=== PATIENT | female | born 1965 | race American Indian/Alaskan Native ===

== ENCOUNTER 2018-01-12 10:09 | Outpatient (CLI) | payer BC ==
--- NOTE | 2018-01-12 10:50 | XRay Report ---
CHEST 2 VIEWS INDICATION: Bronchitis. COMPARISON: None similar. FINDINGS: Frontal and lateral chest radiographs demonstrate mild exaggerated cardiomediastinal silhouette/possible cardiomegaly and slightly crowded lung markings centrally. No pleural effusions or CHF. Mid to lower thoracic spine right-sided spurring. CONCLUSION: No acute chest process, as described. Thank you for the opportunity to participate in this patient's care.
== END 2018-01-12 10:10 | disposition home or self-care (01) ==
LOC: XRAY 10:09
PROVIDERS: ATTEND Internal Medicine
DX: J40 Bronchitis, not specified as acute or chronic (principal); M53.84 Other specified dorsopathies, thoracic region
CPT/HCPCS: 71046

== ENCOUNTER 2019-08-27 07:54 | Outpatient (CLI) | payer BC ==
--- NOTE | 2019-08-30 08:19 | Mammography Report ---
DIGITAL SCREENING MAMMOGRAM WITH CAD, 08/27/2019 INDICATION: Routine screening mammography. TECHNIQUE: Digital bilateral 2D mammography was obtained in the craniocaudal and mediolateral obliq ue projections. This examination was interpreted with the benefit of Computer-Aided Detection analysi s. COMPARISON: 01/12/2018 FINDINGS: Breast Density: The breasts are almost entirely fatty. There is no evidence of dominant mass, suspicious calcifications or architectural distortion in eithe r breast. IMPRESSION: No mammographic evidence of malignancy. Follow up recommendation: Routine yearly BI-RADS Category 1: Negative. A "normal" or negative report should not discourage follow up or biopsy of a clinically significant f inding. A written summary of these findings will be mailed to the patient. The patient will be entered into a mammography reporting system which will generate a reminder letter for the patient's next appointmen t at the appropriate interval. [employer] recommends yearly mammograms starting at age 40 and continuing as l ranjit as a woman is in good health. Breast MRI is recommended for women with an approximate 20-25% or greater lifetime risk of breast cancer, including women with a strong family history of breast or ova yuly cancer or who have been treated for Hodgkin's disease. Signer Name: Surendra Kincaid MD Signed: 08/30/2019 8:15 AM Workstation Name: [id number]
== END 2019-08-27 07:55 | disposition home or self-care (01) ==
LOC: MAMMO 07:54
PROVIDERS: ATTEND Obstetrics & Gynecology
DX: Z12.31 Encounter for screening mammogram for malignant neoplasm of breast (principal)
CPT/HCPCS: 77067